=== PATIENT | male | born 1960 | race Caucasian/White ===

== ENCOUNTER 2020-08-30 19:43 | Emergency (ER) | payer SELFPAY ==
[~2020-08-30] VITALS: Ht 180.3 cm; Wt 87.0 kg
--- OUTSIDE RECORDS SUMMARY | 2020-08-30 19:44 | XMS ---
PreManage Notification: GIRMA LILLY Security Expanded Duty Dental Assistant Events 1 event(s) in the past 18 months Most recent security events: Verbal at [facility] 06/18/2019 12:22 - Patient was verbally abusive towards care providers, staff or patient. CRITERIA MET - 6 ED Visits in 6 Months - [facility] - Has Care Guidelines - [facility] - 3 Facilities in 90 Days - [facility] - 2 Visits in 30 Days CARE PROVIDERS ARMAND COTTRELL Physician Residential Roofer Helper: Medical Current PHONE: [phone] Guidelines Source: [facility] Guidelines Date: 06/18/2019 Care Recommendation: 06/18/19 Pt was seen and [facility] ED, he was admitted OBS for dialysis, he starting refusing meds to lower his\T\nbsp; K+, then left AMA before dialysis, refusing to sign AMA papers. States he gets a check on the and will use that check to get back to [place]. He has been staying at [facility] in [place]. Additional Information: States he usually receives hemodialysis twice a week, does not have any current providers, uses the ED and hospital for dialysis care. Additional care guidelines exist for the following facilities: [facility] ( 08/09/2020 ) [facility] ( 11/23/2014 ) [facility] ( 11/23/2014 ) [facility] VISIT COUNT (12 MO.) 2 Dakotah Starks 1 Sly Yeager 1 Tanvi Yeager [facility]rrutia 10 [facility] ([facility] 2 [facility] ([facility] 1 [facility]) ([facility] TOTAL 49 NOTE: Visits indicate total known visits. ED/UCC VISIT TRACKING (12 MO.) 08/30/2020 19:43 [place]AD[facility] [place]re[place] TYPE: Emergency COMPLAINT: - R ARM PAIN 08/27/2020 10:34 [facility] TYPE: Emergency DIAGNOSES: [id number]. MARY . End stage renal disease . Dependence on renal dialysis . Chest pain, unspecified 08/26/2020 17:20 Dakotah Starks [facility] TYPE: Emergency DIAGNOSES: - Hyperkalemia - EMS/ SOB - End stage renal disease 08/13/2020 08:40 Sly Yeager [facility] TYPE: Emergency COMPLAINT: - weakness DIAGNOSES: - Body mass index [BMI] 23.0-23.9, adult 08/12/2020 20:31 [facility] ([facility] TYPE: Emergency COMPLAINT: - Acute exacerbation of chronic low back pain (Primary Dx) DIAGNOSES: - Low back pain 08/07/2020 19:04 [facility] ([facility] TYPE: Emergency COMPLAINT: - ESRD (end stage renal disease) ([facility]) DIAGNOSES: - Weakness - Gastro-esophageal reflux disease without esophagitis - End stage renal disease - Dizziness and giddiness - Unspecified fall, initial encounter 07/26/2020 12:24 [facility]) ([facility] TYPE: Emergency COMPLAINT: - Chronic right shoulder pain (Primary Dx); Noncompliance with renal dialysis DIAGNOSES: - Pain in right shoulder - Patient's noncompliance with renal dialysis 07/26/2020 00:05 [facility]) ([facility] TYPE: Emergency 07/16/2020 17:51 [facility]) ([facility] TYPE: Emergency COMPLAINT: - Hyperkalemia (Primary Dx); Benign hypertension with ESRD (end-stage renal disease) DIAGNOSES: - Hyperkalemia - Hypertensive chronic kidney disease with stage 5 chronic kidney disease or end stage renal disease 07/16/2020 11:32 [facility]) ([facility] TYPE: Emergency COMPLAINT: - Hyperkalemia (Primary Dx); Chronic renal failure, unspecified CKD stage DIAGNOSES: - Chronic kidney disease, unspecified - Hyperkalemia 07/09/2020 11:36 [facility]) ([facility] TYPE: Emergency COMPLAINT: - End stage kidney disease (Primary Dx); Generalized muscle weakness DIAGNOSES: - End stage renal disease - Muscle weakness (generalized) 07/09/2020 00:00 [facility] ([facility] TYPE: Emergency 05/03/2020 01:07 [facility] ([facility] TYPE: Emergency DIAGNOSES: - End stage renal disease - Dyspnea, unspecified 05/02/2020 10:41 [facility] ([facility] TYPE: Emergency DIAGNOSES: - End stage renal disease - Chest pain, unspecified 04/30/2020 08:07 [facility] ([facility] TYPE: Emergency DIAGNOSES: - Other specified abnormal findings of blood chemistry - End stage renal disease - Weakness - Other specified abnormal findings of blood chemistry - Other fatigue - Shortness of breath - Hyperkalemia 04/11/2020 21:43 [facility] TYPE: Emergency DIAGNOSES: - Chronic kidney disease, stage 5 - Acute pulmonary edema - Other fluid overload - Abnormal Lab - Hyperkalemia - End stage renal disease - Essential (primary) hypertension - Type 2 diabetes mellitus with diabetic chronic kidney disease - Dependence on renal dialysis - Anemia in chronic kidney disease [facility]11/2020 11[facility] DIAGNOSES: - Dependence on renal dialysis - End stage renal disease - Shortness of breath 04/03/2020 08:27 [facility] ([facility] TYPE: Emergency COMPLAINT: - Diarrhea DIAGNOSES: - Weakness - Diarrhea, unspecified - End stage renal disease - Paroxysmal atrial fibrillation - Patient's other noncompliance with medication regimen - End stage renal disease 04/02/2020 09:40 [facility] ([facility] TYPE: Emergency DIAGNOSES: - Pain in thoracic spine 02/24/2020 13:58 [facility] ([facility] TYPE: Emergency COMPLAINT: - Rib pain on left side (Primary Dx); Dialysis patient, noncompliant; Hyperkalemia DIAGNOSES: - Hyperkalemia - Patient's noncompliance with renal dialysis - Pleurodynia Plus 29 More Visits INPATIENT VISIT TRACKING (12 MO.) 08/13/2020 08:40 Sly Yeager [place] TYPE: Internal Medicine COMPLAINT: - weakness DIAGNOSES: - Immunization not carried out because of patient refusal - End stage renal disease - Unspecified atrial fibrillation - Body mass index [BMI] 26.0-26.9, adult - Other chronic pain - Pain in right shoulder - Diarrhea, unspecified - Bicipital tendinitis, right shoulder - Pneumonia due to coronavirus disease 201 - Cataract extraction status, left eye - terminal operator (current) use of aspirin - Acquired absence of spleen - Body mass index [BMI]30.0-30.9, adult - Nicotine dependence, cigarettes, uncomplicated - Fluid overload, unspecified - Dependence on renal dialysis - COVID-19 - Cardiac murmur, unspecified - Allergy status to other drugs, medicaments and biological substances - Body mass index [BMI] 23.0-23.9, adult - Hypertensive chronic kidney disease with stage 5 chronic kidney disease or end stage renal disease - COVID-19 - Allergy status to other antibiotic agents - Hypoxemia - Cataract extraction status, right eye - Essential (primary) hypertension - Epilepsy, unspecified, not intractable, without status epilepticus - Unspecified convulsions - End stage renal disease - Other termite control service representative (current) drug therapy - Homelessness 07/31/2020 15:49 [facility] ([facility] TYPE: Inpatient COMPLAINT: - Suicidal ideations DIAGNOSES: - Adjustment disorder with mixed anxiety and depressed mood - Major depressive disorder, single episode, unspecified - End stage renal disease - Nausea - Phobic anxiety disorder, unspecified - Type 2 diabetes mellitus with diabetic polyneuropathy - Encounter for issue of other medical certificate - Narcissistic personality disorder - Diarrhea, unspecified - Pain, unspecified - Tobacco use - Weakness - Hyperkalemia - Suicidal ideations - Suicidal ideations - End stage renal disease - Other specified counseling 05/03/2020 17:04 Sly Yeager [facility] TYPE: Internal Medicine COMPLAINT: - Syncope DIAGNOSES: - Unspecified visual loss - Hyperkalemia - Anemia in chronic kidney disease - Unspecified cataract - longterm (current) use of aspirin - Cataract extraction status, left eye - Syncope and collapse - Unspecified atrial fibrillation - Other peripheral vertigo, unspecified ear - Pain in left shoulder - End stage renal disease - Pain in left hip - Acquired absence of spleen - Other disorders of phosphorus metabolism - Immunization not carried out because of patient refusal - Other disorders of phosphorus metabolism - Contact with and (suspected) exposure to other viral communicable diseases - Acidosis - Anemia, unspecified - Dependence on renal dialysis - End stage renal disease - Acidosis - Type 2 diabetes mellitus with diabetic chronic kidney disease - Other peripheral vertigo, unspecified ear - Nicotine dependence, cigarettes, uncomplicated - Hyperkalemia - Major depressive disorder, single episode, unspecified - Chronic obstructive pulmonary disease, unspecified - Pain in right shoulder - Unspecified fall, initial encounter - Acquired absence of other toe(s), unspecified side - Hypertensive chronic kidney disease with stage 5 chronic kidney disease or end stage renal disease 04/11/2020 21:43 [facility] TYPE: Cardiology DIAGNOSES: - Chronic kidney disease, stage 5 - Other chronic osteomyelitis, multiple sites - Paroxysmal atrial fibrillation - Dependence on renal dialysis - Encephalopathy, unspecified - Hyperkalemia - Anemia in chronic kidney disease - Acquired absence of spleen - Major depressive disorder, single episode, unspecified - Other fluid overload - End stage renal disease - Cardiac murmur, unspecified - Acute pulmonary edema - Unspecified convulsions - Essential (primary) hypertension - Type 2 diabetes mellitus with diabetic chronic kidney disease 04/03/2020 12:30 [facility] ([facility] TYPE: Inpatient 03/25/2020 03:50 [facility] ([facility] TYPE: Inpatient 03/24/2020 18:00 [facility] ([facility] TYPE: Inpatient COMPLAINT: - Altered mental status DIAGNOSES: - End stage renal disease - Altered mental status, unspecified - Unspecified convulsions - Unspecified atrial flutter - End stage renal disease - Acute on chronic diastolic (congestive) heart failure - Hyperkalemia - Acquired absence of spleen - Type 2 diabetes mellitus without complications - Other acute osteomyelitis, right ankle and foot - Encephalopathy, unspecified - Acute respiratory failure with hypoxia - Paroxysmal atrial fibrillation 02/29/2020 01:26 [facility] ([facility] TYPE: Inpatient COMPLAINT: - Hyperkalemia DIAGNOSES: - Allergy status to penicillin - Other acute osteomyelitis, right ankle and foot - End stage renal disease - Shortness of breath - Fluid overload, unspecified - Pain in right foot - Hyperkalemia - End stage renal disease - Pain in unspecified ankle and joints of unspecified foot - Acute respiratory failure with hypoxia - Polyneuropathy, unspecified 01/24/2020 02:51 [facility] ([facility] TYPE: Inpatient COMPLAINT: - Hyperkalemia DIAGNOSES: - Type 2 diabetes mellitus with diabetic polyneuropathy - Diarrhea, unspecified - End stage renal disease - Hyperkalemia - Dorsalgia, unspecified - Type 2 diabetes mellitus without complications - Paroxysmal atrial fibrillation - Fluid overload, unspecified - End stage renal disease - End stage renal disease 12/23/2019 15:16 [facility] ([facility] TYPE: Inpatient COMPLAINT: - Generalized weakness DIAGNOSES: - Chronic pain syndrome - Repeated falls - Paroxysmal atrial fibrillation - Unsteadiness on feet - End stage renal disease - Elevated white blood cell count, unspecified - Renovascular hypertension - End stage renal disease - Weakness - Patient's other noncompliance with medication regimen - Patient's noncompliance with renal dialysis - Moderate protein-calorie malnutrition - Paroxysmal atrial fibrillation - Type 2 diabetes mellitus without complications - Hyperkalemia 12/08/2019 04:24 [facility] ([facility] TYPE: Inpatient COMPLAINT: - Right foot pain DIAGNOSES: - Pain in right ankle and joints of right foot - Pain in right foot - Type 2 diabetes mellitus without complications - Unspecified fall, initial encounter - Type 2 diabetes mellitus with foot ulcer - Type 2 diabetes mellitus with other skin complications - End stage renal disease - End stage renal disease - Non-pressure chronic ulcer of other part of left foot limited to breakdown of skin - Type 2 diabetes mellitus with diabetic polyneuropathy - Dizziness and giddiness - Nausea with vomiting, unspecified - Hyperkalemia 11/14/2019 04:20 Chelalázaro Urrutia [facility] TYPE: Medical Surgical DIAGNOSES: - End stage renal disease - Cellulitis of left lower limb - Fluid overload, unspecified [email or web address]
[2020-08-30] MEDS ORDERED: ZOLOFT100 MG PO (20:00)
[2020-08-30] MEDS ORDERED: NEURONTIN300 MG PO (20:00)
[2020-08-30] MEDS ORDERED: CLARITIN10 M2 PO (20:01)
[2020-08-30] MEDS ORDERED: TUMS200 MG PO (20:01)
[2020-08-30] MEDS ORDERED: IMODIUM A-D2 M2 PO (20:01)
== END 2020-08-30 21:08 | disposition home or self-care (01) ==
LOC: ED 19:43
DX: M25.511 Pain in right shoulder (principal); G40.909 Epilepsy, unspecified, not intractable, without status epilepticus; I12.0 Hypertensive chronic kidney disease with stage 5 chronic kidney disease or end stage renal disease; N18.6 End stage renal disease; Z99.2 Dependence on renal dialysis; Z59.0 Homelessness; I48.91 Unspecified atrial fibrillation; E11.22 Type 2 diabetes mellitus with diabetic chronic kidney disease; E11.40 Type 2 diabetes mellitus with diabetic neuropathy, unspecified; F17.200 Nicotine dependence, unspecified, uncomplicated; Z88.1 Allergy status to other antibiotic agents; Z88.0 Allergy status to penicillin; Z79.899 Other long term (current) drug therapy
CPT/HCPCS: 99283